=== PATIENT | female | born 1980 | race African-American/Black ===

== ENCOUNTER 2019-02-26 14:03 | Emergency (ER) | payer OTHER ==
[~2019-02-26] VITALS: Ht 167.6 cm; Wt 104.3 kg
[2019-02-26 14:47] VITALS: BP 109/74
[2019-02-26] MEDS ORDERED: DIFLUCAN150 MG PO (14:48)
== END 2019-02-26 15:20 | disposition home or self-care (01) ==
LOC: ER 14:03
DX: J02.0 Streptococcal pharyngitis (principal); F17.210 Nicotine dependence, cigarettes, uncomplicated